=== PATIENT | female | born 1985 | race Caucasian/White ===

== ENCOUNTER 2023-12-07 06:18 | Day surgery (SDC) | payer OTHER ==
[~2023-12-07] VITALS: Ht 172.7 cm; Wt 59.0 kg
[2023-12-07] MEDS ORDERED: fentaNYL citrate 0.05 MG/ML VIAL ONE (07:23)
[2023-12-07] MEDS ORDERED: diphenhydrAMINE 50 MG/ML VIAL ONE (07:23)
[2023-12-07] MEDS ORDERED: MIDAZOLAM 5 MG/5 ML VIAL ONE (07:23)
[2023-12-07] MEDS: MIDAZOLAM 5 MG/5 ML VIAL IV ONE (07:28)
[2023-12-07] MEDS: fentaNYL citrate 0.05 MG/ML VIAL IVP ONE (07:29)
[2023-12-07] MEDS: diphenhydrAMINE 50 MG/ML VIAL IVP ONE (07:30)
== END 2023-12-07 09:15 | disposition home or self-care (01) ==
LOC: MDS 06:18 → MMU 06:20 → MDS 09:15
PROVIDERS: ATTEND Internal Medicine Gastroenterology
DX: R19.4 Change in bowel habit (principal); R19.7 Diarrhea, unspecified; K21.9 Gastro-esophageal reflux disease without esophagitis; G43.909 Migraine, unspecified, not intractable, without status migrainosus; Z92.29 Personal history of other drug therapy; Z79.899 Other long term (current) drug therapy; Z98.890 Other specified postprocedural states
CPT/HCPCS: 43239; 45380; J1200; J2250; J3010